=== PATIENT | male | born 1990 | race Caucasian/White ===

== ENCOUNTER 2017-07-08 15:56 | Emergency (ER) | payer SELFPAY ==
[~2017-07-08] VITALS: Ht 170.2 cm; Wt 100.0 kg
[2017-07-08 16:02] VITALS: TEMP 98.9
[2017-07-08 16:52] LABS: BASO % 0.5 % (0.0-2.0); EOS # 0.1 (0.0-0.7); EOS % 1.4 % (0-4.0); GRAN # 4.7 (1.4-6.5); GRAN % 55.5 % (42.2-75.2); HEMATOCRIT 49.6 % (42.0-52.0); HEMOGLOBIN 16.8 g/dl (13.5-18.0); LYMPH # 2.7 (1.2-3.4); LYMPH % 32.7 % (20.0-51.0); MEAN CELL VOLUME 84 fl (80.0-100.0); MEAN CORPUSCULAR HEMOGLOBIN 29 pg (27.0-31.0); MEAN CORPUSCULAR HGB CONC 34 g/dl (33.0-37.0); MEAN PLATELET VOLUME 9.2 fl (7.4-10.4); MONO # 0.8 (0.1-0.6); MONO % 9.7 % (1.7-9.3); PLATELET COUNT 203 K/mm3 (130-400); REDCELL DISTRIBUTION WIDTH-CV 12.7 % (11.5-14.5); WHITE BLOOD COUNT 8.4 K/mm3 (4.8-10.8)
[2017-07-08 17:15] LABS: AMPHETAMINE URINE NEGATIVE; BARBITURATES URINE NEGATIVE; BENZODIAZEPINES URINE NEGATIVE; BUPRENORPHINE URINE NEGATIVE; METHADONE URINE NEGATIVE; OPIATES URINE NEGATIVE; OXYCODONE URINE NEGATIVE; PHENCYCLIDINE URINE NEGATIVE; PROPOXYPHENE URINE NEGATIVE; THC CANNABINOIDS URINE POSITIVE
[2017-07-08 17:29] LABS: ADJUSTED CALCIUM 9.1 mg/dL (8.4-10.2); ALBUMIN 4.4 gm/dL (3.5-5.0); BILIRUBIN,TOTAL 0.7 mg/dL (0.0-1.0); CALCIUM 9.4 mg/dL (8.4-10.2); CREATININE, serum 0.93 mg/dL (0.66-1.25); POTASSIUM 4.1 mmol/L (3.4-5.0); TOTAL PROTEIN 8.2 gm/dL (6.4-8.2)
[2017-07-08] MEDS ORDERED: VALIUM 5MG T5 MG/TAB PO (19:11)
[2017-07-08 19:26] VITALS: BP 107/59; PULSE 102
== END 2017-07-08 19:27 | disposition home or self-care (01) ==
LOC: COL.ER 15:56
PROVIDERS: Physician Assistant
DX: R07.9 Chest pain, unspecified (principal); I10 Essential (primary) hypertension; E78.5 Hyperlipidemia, unspecified; F17.210 Nicotine dependence, cigarettes, uncomplicated; Z90.89 Acquired absence of other organs

== ENCOUNTER 2019-09-17 10:58 | Emergency (ER) | payer SELFPAY ==
[~2019-09-17] VITALS: Ht 170.2 cm; Wt 106.8 kg
[~2019-09-17 10:58] MED LIST: VALIUM 5MG T5 MG/TAB PO
[2019-09-17 11:05] VITALS: BP 143/81; TEMP 97.5
[2019-09-17] MEDS ORDERED: AMOXICILLIN 8751 TAB PO (12:43)
[2019-09-17 12:55] VITALS: PULSE 89
== END 2019-09-17 12:55 | disposition home or self-care (01) ==
LOC: COL.ER 10:58
DX: J01.90 Acute sinusitis, unspecified (principal); F17.210 Nicotine dependence, cigarettes, uncomplicated; Z90.89 Acquired absence of other organs
CPT/HCPCS: J1100

== ENCOUNTER 2019-11-06 20:16 | Emergency (ER) | payer SELFPAY ==
[~2019-11-06] VITALS: Ht 170.2 cm; Wt 103.6 kg
[~2019-11-06 20:16] MED LIST changes: +AMOXICILLIN 8751 TAB PO
[2019-11-06] MEDS ORDERED: TAMIFLU 75MG75 MG PO (21:28)
[2019-11-06 22:50] VITALS: BP 142/86; PULSE 112; TEMP 99.1
== END 2019-11-06 23:00 | disposition home or self-care (01) ==
LOC: COL.ER 20:16
DX: J09.X2 Influenza due to identified novel influenza A virus with other respiratory manifestations (principal); Z87.891 Personal history of nicotine dependence

== ENCOUNTER 2022-05-09 04:34 | Emergency (ER) | payer SELFPAY ==
[~2022-05-09] VITALS: Ht 170.2 cm; Wt 109.1 kg
[~2022-05-09 04:34] MED LIST changes: +TAMIFLU 75MG75 MG PO
[2022-05-09 04:39] VITALS: TEMP 97.7
[2022-05-09 05:32] LABS: BASO # 0.1 K/mm3 (0.0-0.2); BASO % 0.5 % (0.0-2.0); EOS # 0.4 K/mm3 (0.0-0.7); EOS % 3.9 % (0.0-4.0); GRAN # 6.4 K/mm3 (1.4-6.5); GRAN % 65.9 % (42.2-75.2); HEMATOCRIT 45.8 % (42.0-52.0); HEMOGLOBIN 15.5 g/dl (13.5-18.0); LYMPH % 20.6 % (20.0-51.0); MEAN CELL VOLUME 85 fl (80.0-100.0); MEAN CORPUSCULAR HEMOGLOBIN 29 pg (27-31); MEAN CORPUSCULAR HGB CONC 34 g/dl (33.0-37.0); MEAN PLATELET VOLUME 9.6 fl (7.4-10.4); MONO # 0.9 K/mm3 (0.1-0.6); MONO % 8.8 % (1.7-9.3); PLATELET COUNT 226 K/mm3 (130-400); RED BLOOD COUNT 5.38 M/mm3 (4.20-5.60); REDCELL DISTRIBUTION WIDTH-CV 13.2 % (11.5-14.5)
[2022-05-09 05:58] LABS: ALANINE AMINOTRANSFERASE 30 U/L (0-55); ALKALINE PHOSPHATASE 78 U/L (40-150); ANION GAP 10 mmol/L (7-16); AST,SGOT 22 U/L (5-34); BILIRUBIN,TOTAL 0.3 mg/dL (0.2-1.2); BLOOD UREA NITROGEN 14 mg/dL (9-21); CALCIUM 9.5 mg/dL (8.4-10.2); CARBON DIOXIDE 23 mmol/L (22-29); CHLORIDE 106 mmol/L (98-107); CREATININE, serum 0.81 mg/dL (0.72-1.25); GLUCOSE 101 mg/dL (70-99); POTASSIUM 4.4 mmol/L (3.5-4.5); SODIUM 139 mmol/L (136-145); TOTAL PROTEIN 7.4 gm/dL (6.2-8.1)
[2022-05-09 06:06] LABS: TROPONIN-I < 0.010 ng/mL (0.00-0.033)
[2022-05-09 06:16] LABS: ALBUMIN 3.9 gm/dL (3.5-5.0)
[2022-05-09 06:59] LABS: TRICYCLIC ANTIDEPRESS URINE NEGATIVE
[2022-05-09 07:36] LABS: COLLECTION METHOD CLEAN CATCH
[2022-05-09 07:47] LABS: MUCOUS Present (NOT PRESENT); PH 6 (5-8); SQUAMOUS EPITHELIAL 0-2 /hpf (0-10); URINE APPEARANCE Clear (CLEAR/HAZY); URINE BACTERIA None Seen /hpf (NONE SEEN); URINE BLOOD Negative (NEGATIVE); URINE COLOR Straw (YELLOW); URINE GLUCOSE Negative (NEGATIVE); URINE KETONE Negative (NEGATIVE); URINE NITRATE Negative (NEGATIVE); URINE PROTEIN(semi-quant) Negative (NEGATIVE); URINE RBC None Seen /hpf (0-2); URINE UROBILINOGEN Negative (NEGATIVE)
[2022-05-09 08:14] VITALS: BP 132/81; PULSE 69
== END 2022-05-09 08:16 | disposition home or self-care (01) ==
LOC: COL.ER 04:34
PROVIDERS: Emergency Medicine Emergency Medical Services
DX: R07.89 Other chest pain (principal); M79.672 Pain in left foot; M79.671 Pain in right foot; Z28.310 Unvaccinated for COVID-19

== ENCOUNTER 2023-11-11 13:16 | Emergency (ER) | payer OTHER ==
[~2023-11-11] VITALS: Ht 170.2 cm; Wt 115.9 kg
[~2023-11-11 13:16] MED LIST changes: +PROTONIX20 MG PO
[2023-11-11 13:26] VITALS: BP 131/84; PULSE 84; TEMP 98.3
== END 2023-11-11 14:36 | disposition left against medical advice (07) ==
LOC: COL.ER 13:16
DX: G89.18 Other acute postprocedural pain (principal); R10.9 Unspecified abdominal pain